=== PATIENT | male | born 1995 | race African-American/Black ===

== ENCOUNTER 2018-11-26 14:07 | Emergency (ER) | payer OTHER ==
[~2018-11-26] VITALS: Ht 177.8 cm; Wt 70.3 kg
[2018-11-26] MEDS ORDERED: IBUPROFEN 600600 M1 PO (15:42)
[2018-11-26 16:39] VITALS: BP 131/90
== END 2018-11-26 16:40 | disposition home or self-care (01) ==
LOC: M.ERS 14:07
DX: S16.1XXA Strain of muscle, fascia and tendon at neck level, initial encounter (principal); S20.412A Abrasion of left back wall of thorax, initial encounter; S09.8XXA Other specified injuries of head, initial encounter; M25.511 Pain in right shoulder; V89.2XXA Person injured in unspecified motor-vehicle accident, traffic, initial encounter; Y93.02 Activity, running; Y92.89 Other specified places as the place of occurrence of the external cause; Y99.8 Other external cause status

== ENCOUNTER 2018-11-27 23:12 | Emergency (ER) | payer OTHER ==
[~2018-11-27] VITALS: Ht 177.8 cm; Wt 58.5 kg
[~2018-11-27 23:12] MED LIST: IBUPROFEN 600600 M1 PO
[2018-11-28 00:52] LABS: AMP/METHAMP Negative (Negative); BARBITURATES Negative (Negative); BENZODIAZEPINES Negative (Negative); COCAINE Negative (Negative); METHADONE Negative (Negative); OPIATES Negative (Negative); PCP Negative (Negative); THC POSITIVE (Negative)
[2018-11-28 00:52] LABS: URINE BILIRUBIN 2+ (Negative); URINE BLOOD NEGATIVE (Negative); URINE CLARITY CLEAR; URINE COLOR YELLOW; URINE GLUCOSE-RANDOM NEGATIVE (Negative); URINE KETONES 2+ (Negative); URINE LEUKOCYTES-REFLEX NEGATIVE (Negative); URINE NITRITE-REFLEX NEGATIVE (Negative); URINE PROTEIN TRACE (Negative); URINE SPECIFIC GRAVITY >= 1.030 (1.005-1.030); URINE UROBILINOGEN 0.2 E.U./dl (0.2-1.0)
[2018-11-28 00:54] LABS: ICTOTEST (BILI CONFIRMATORY) Negative (Negative)
[2018-11-28 00:54] LABS: ALBUMIN 4.2 g/dL (3.4-5.0); CALCIUM 9.5 mg/dL (8.5-10.1); CREATININE 1.4 mg/dL (0.6-1.3); POTASSIUM 3.3 mmol/L (3.5-5.1); TOTAL BILIRUBIN 0.9 mg/dL (<0.1-1.0); TOTAL PROTEIN 7.8 g/dL (6.4-8.2)
[2018-11-28 01:01] LABS: ABSOLUTE BASOPHILS 0.1 thou/uL (0.0-0.2); ABSOLUTE MONOCYTES 0.5 thou/uL (0.0-1.2); ABSOLUTE NEUTROPHILS 3.8 thou/uL (1.6-8.1); BASOPHILS 0.8 %; EOSINOPHILS 0.1 %; HEMATOCRIT 45.5 % (42.0-52.0); HEMOGLOBIN 15.2 gm/dL (14.0-18.0); LYMPHOCYTES 32.1 %; MCH 29.7 pg (26.0-34.0); MCHC 33.3 g/dL (28.0-37.0); MCV 89.1 fL (80.0-100.0); MONOCYTES 7.6 %; MPV 11.3 fl. (7.2-11.1); NUCLEATED RBCS 0 /100WBC; PLATELET COUNT* 167 thou/uL (150-400); POLYS 59.4 %; RDW-CV 13.8 % (10.5-14.5); WBC 6.4 thou/uL (4.0-11.0)
[2018-11-28 02:16] VITALS: BP 130/86
== END 2018-11-28 02:17 | disposition home or self-care (01) ==
LOC: M.ERS 23:12
PROVIDERS: Personal Emergency Response Attendant
DX: E86.0 Dehydration (principal); R55 Syncope and collapse; Z79.899 Other long term (current) drug therapy

== ENCOUNTER 2018-11-29 18:38 | Inpatient (IN) | payer OTHER ==
[~2018-11-29] VITALS: Ht 180.3 cm; Wt 62.2 kg
[2018-11-29 19:05] VITALS: BP 134/78
[2018-11-29 19:44] LABS: ABSOLUTE LYMPHOCYTES 1.8 thou/uL (0.8-5.3); ABSOLUTE MONOCYTES 0.5 thou/uL (0.0-1.2); ABSOLUTE NEUTROPHILS 2.2 thou/uL (1.6-8.1); BASOPHILS 0.8 %; EOSINOPHILS 0.2 %; HEMOGLOBIN 14.9 gm/dL (14.0-18.0); LYMPHOCYTES 40.6 %; MCH 29.8 pg (26.0-34.0); MCHC 33.9 g/dL (28.0-37.0); MCV 88.1 fL (80.0-100.0); MPV 10.7 fl. (7.2-11.1); NUCLEATED RBCS 0 /100WBC; PLATELET COUNT* 209 thou/uL (150-400); POLYS 48.4 %; RDW-CV 13.4 % (10.5-14.5); WBC 4.5 thou/uL (4.0-11.0)
[2018-11-29 19:50] LABS: ALBUMIN 4.2 g/dL (3.4-5.0); CALCIUM 9.5 mg/dL (8.5-10.1); CREATININE 1.2 mg/dL (0.6-1.3); POTASSIUM 3.9 mmol/L (3.5-5.1); TOTAL BILIRUBIN 0.9 mg/dL (<0.1-1.0); TOTAL PROTEIN 7.8 g/dL (6.4-8.2)
[2018-11-29 22:47] LABS: URINE BILIRUBIN NEGATIVE (Negative); URINE BLOOD NEGATIVE (Negative); URINE CLARITY CLEAR; URINE COLOR YELLOW; URINE GLUCOSE-RANDOM 2+ (Negative); URINE KETONES 1+ (Negative); URINE LEUKOCYTES-REFLEX NEGATIVE (Negative); URINE NITRITE-REFLEX NEGATIVE (Negative); URINE PROTEIN NEGATIVE (Negative); URINE UROBILINOGEN 0.2 E.U./dl (0.2-1.0)
[2018-11-29 22:48] VITALS: BP 125/91
[2018-11-29 22:53] LABS: AMP/METHAMP Negative (Negative); BARBITURATES Negative (Negative); BENZODIAZEPINES Negative (Negative); COCAINE Negative (Negative); METHADONE Negative (Negative); OPIATES Negative (Negative); PCP Negative (Negative); THC POSITIVE (Negative)
[2018-11-30 04:00] VITALS: BP 126/84
[2018-11-30 05:19] LABS: ABSOLUTE MONOCYTES 0.5 thou/uL (0.0-1.2); ABSOLUTE NEUTROPHILS 2.3 thou/uL (1.6-8.1); BASOPHILS 0.7 %; HEMATOCRIT 41.1 % (42.0-52.0); HEMOGLOBIN 13.7 gm/dL (14.0-18.0); LYMPHOCYTES 40.1 %; MCH 29.2 pg (26.0-34.0); MCHC 33.4 g/dL (28.0-37.0); MCV 87.3 fL (80.0-100.0); MONOCYTES 10.6 %; NUCLEATED RBCS 0 /100WBC; PLATELET COUNT* 208 thou/uL (150-400); POLYS 47.6 %; RBC 4.71 mil/uL (4.50-6.00); RDW-CV 13.1 % (10.5-14.5); WBC 4.9 thou/uL (4.0-11.0)
[2018-11-30 05:32] LABS: CREATININE 1.2 mg/dL (0.6-1.3); POTASSIUM 3.6 mmol/L (3.5-5.1)
[2018-11-30 08:00] VITALS: BP 121/82
[2018-11-30 10:10] VITALS: BP 140/94
--- NOTE | 2018-11-30 11:07 | EKG ---
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 : 1995 Requested By: Svitlana Arceo Order Number: [id number] Meggan MD: Dontrell Mancilla Measurements Intervals [place] Rate: 80 P: 84 SD: 140 QRS: 97 QRSD: 101 T: 24 QT: 363 QTc: 419 Interpretive Statements Sinus arrhythmia Borderline right axis deviation RSR' in V1 or V2, probably normal variant ST elev, probable normal early repol pattern No previous ECG available for comparison Electronically Signed On 11-30-2018 11:07:31 CDT by Dontrell Mancilla [email or web address] <ELECTRONICALLY SIGNED> By: Dontrell Mancilla MD, FACC 11/30/18 1107 [id number] Dontrell Mancilla MD, [facility] /EPI
[2018-11-30 13:01] VITALS: BP 125/74
[2018-11-30 16:10] VITALS: BP 138/81
[2018-12-01 03:07] LABS: GLYCOHEMOGLOBIN (HGB A1C) 5.2 % (4.8-5.6)
--- NOTE | 2018-12-01 19:12 | EEG ---
[address] [address] EEG STUDY REPORT Name: BAL MCGUIRE Room: [address] IN M.R.#: [id number] Admission: 11/29/18 Attend Phys: Kurt Gomez MD Discharge: 11/30/18 Date of : [birth year] Report #: [id number] THIS REPORT FOR: //name// CC: DIPAK physician/PCP Kurt Gomez DATE OF SERVICE: 11/29/2018 This patient is being evaluated for altered mental status. EEG was done by placing the electrode by standard 10-20 system of electrode placement. Both referential and sequential montages were used for recording. Background activity in this patient's EEG is about 9-10 Hz and 30 microvolt. Lot of artifact is present, making the interpretation of this EEG very difficult. Lot of muscle artifact is present and eye movement artifact is present. The patient did not cooperate in that sense. Photic stimulation was unremarkable. Throughout the record, no definite epileptiform activity was noticed. IMPRESSION: This patient's EEG is extremely difficult to interpret because there is a lot of artifact present. I do not believe any active epileptiform activity was present, but that cannot be fully excluded because of a lot of artifact present. <ELECTRONICALLY SIGNED> By: Jeff Royal MD 12/01/18 1912 [id number] mahesh Simpson
--- NOTE | 2018-12-01 19:12 | CON ---
[address] [address] CONSULTATION Name: BAL MCGUIRE Room: [address] IN M.R.#: [id number] Admission: 11/29/18 Attend Phys: Kurt Gomez MD Discharge: 11/30/18 Date of : [birth year] Report #: [id number] THIS REPORT FOR: //name// CC: DIPAK physician/PCP Kurt Gomez DATE OF SERVICE: 11/30/2018 HISTORY OF PRESENT ILLNESS: This is a 23-year-old male patient who was evaluated by me for pretty unusual symptoms. I talked to the hospitalist. I talked to the nurses looking after this patient. I talked to the patient's girlfriend and at her request called the patient's mother in [place]. The patient had a spell in June where he became lethargic and confused. They did not admit him. He was in hospital in June in [place]. They did a CT, which apparently was okay. They did not do an EEG. Then, he is having these spells where he does some shakiness, he has some eye movements. He underwent an EEG, but EEG has so much artifact, I cannot tell for sure. He did go down for MRI, which is not back, but MRI was done without contrast only. CT showed question of a lesion, but I am not certain about that. We need to wait for MRI and he may need a contrast MRI. He had some history of concussion, but that is difficult to tell for me either whether he was worked up for that or not. REVIEW OF SYSTEMS: Indicate that the girlfriend stated that he is stressed out. He has some trouble with anxiety and depression. Mother indicated that he had some spells even when he was a small child, which looks like seizure. PAST MEDICAL HISTORY: Positive for question of seizures in the past, but was never diagnosed as epileptic seizure. FAMILY HISTORY: Unavailable from the patient. SOCIAL HISTORY: She has a girlfriend, but I cannot get any history. The patient's mother does not note that much history in that regard. PHYSICAL EXAMINATION: Very limited. He stares into the blank. He does not do anything. He does not follow any commands. I cannot tell if you can move anything or not. He has no verbal output. His cardiac examinations appear unremarkable. His blood pressure is 140/94, respirations 14, pulse is 72. He is afebrile. IMPRESSION AND PLAN: I talked to the patient's girlfriend as well as the mother that our hospital does not have capability to do anything further. This patient needs a video monitored EEG and if MRI comes out to be abnormal, that needs to be looked at by neurosurgeon. If his EEG shows seizure activity, he needs an epileptologist and if EEG does not show any seizure activity, then he needs a psychiatrist. He needs to be transferred urgently. Also, [place] [address] CONSULTATION Name: BAL MCGUIRE Room: [address] IN M.R.#: [id number] Admission: 11/29/18 Attend Phys: Kurt Gomez MD Discharge: 11/30/18 Date of : [birth year] Report #: [id number] what kind of workup was done with his spine and what kind of trauma he had there. That also needs to be addressed. I discussed all of it with Dr. Gomez. Mother also has a lot of questions about transferring him and I asked him to talk to the outpatient case manager. Hopefully, we can accomplish his transfer soon. More than 50 minutes of time was spent taking care of this patient and majority of that time was spent counseling and coordinating his care. <ELECTRONICALLY SIGNED> By: Jeff Royal MD 12/01/18 1912 [id number] Royal MD /nt
== END 2018-11-30 16:30 | disposition short-term general hospital (02) | DRG 101 ==
LOC: M.ERS 18:38 → M.TBA-ER 20:46 → M.2W 20:46
PROVIDERS: Personal Emergency Response Attendant; ADMIT Family Medicine
DX: G40.909 Epilepsy, unspecified, not intractable, without status epilepticus (principal); S06.0X9A Concussion with loss of consciousness of unspecified duration, initial encounter; X58.XXXA Exposure to other specified factors, initial encounter; Z82.0 Family history of epilepsy and other diseases of the nervous system; Z79.899 Other long term (current) drug therapy; Y92.89 Other specified places as the place of occurrence of the external cause; Y93.89 Activity, other specified; Y99.8 Other external cause status